=== PATIENT | male | born 2000 | race Native Hawaiian/Other Pacific Islander ===

== ENCOUNTER 2024-06-01 03:27 | Observation (INO) ==
[2024-06-01] MEDS ORDERED: Ondansetron ODT 4 mg TAB 4 MG TAB ONE ×2 (03:33→03:39)
[2024-06-01] MEDS: Ondansetron ODT 4 mg TAB 4 MG TAB SL ONE (03:41)
[2024-06-01] MEDS: Prochlorperazine 5 mg/ml 2 ml VIAL (10 mg) IV ONE (06:36)
[2024-06-01] MEDS: Lactated Ringers 1000 ml BAG 1,000 ML IV ONE (06:40)
[2024-06-01 06:43] LABS: ABS Lymphocytes 1.6 10^3/uL (1.0-4.8); ABS Monocytes 0.4 10^3/uL (0.0-1.1); ABS Neutrophils 8.9 10^3/uL (1.5-7.6); Eosinophil % 0.1 %; Hematocrit 42.8 % (38-53); Hemoglobin 15.3 g/dL (13.2-16.3); Lymphocyte % 14.4 %; Mean Corpuscular Hemoglobin 33.5 pg (27-33); Mean Corpuscular Hgb Conc 35.8 g/dL (31-36); Mean Corpuscular Volume 93.5 fL (80-97); Mean Platelet Volume 8.4 fL (7.5-11.2); Platelet Count 202 10^3/uL (150-450); Red Blood Count 4.58 10^6/uL (4.06-5.63); Red Cell Distribution Width 12.6 % (12-17); White Blood Count 10.9 10^3/uL (3.6-10.2)
[2024-06-01 07:32] LABS: ALT 25 U/L (7-52); AST 16 U/L (13-39); Albumin 4.9 g/dL (3.5-5.7); Albumin/Globulin Ratio 2.2 (1-3); Alkaline Phosphatase 69 U/L (35-149); Anion Gap 10 mmol/L (2-16); Blood Urea Nitrogen 12 mg/dL (6-24); CO2 Carbon Dioxide 29 mmol/L (22-32); Calcium 10.1 mg/dL (8.6-10.3); Chloride 104 mmol/L (101-111); Creatinine, Serum 0.82 mg/dL (0.67-1.17); Globulin 2.2 g/dL (2-4); Glucose 106 mg/dL (70-100); Sodium 143 mmol/L (135-145); Total Bilirubin 0.5 mg/dL (0.2-1.0); Total Protein 7.1 g/dL (6.4-8.9); eGFR CKD-EPI 128.2 (>60)
[2024-06-01] MEDS: Gadoteridol (CONTRAST) 279.3 MG/ML 10 ML IV ONE (11:30)
[2024-06-01] MEDS: methylPREDNISolone SOD SUCC 1000 MG ML VIAL IVPB ONE (13:05)
[2024-06-01] MEDS: methylPREDNISolone SOD SUCC 1,000 MG in NS 0.9% 250 ml 250 ML IVPB ONE (13:35)
[2024-06-01] MEDS: Ondansetron 4 mg VIAL 2 MG/ML 2 ml VIAL IV PRN (13:41)
[2024-06-01] MEDS: Lactated Ringers 1000 ml BAG 1,000 ML IV SCH (14:41)
[2024-06-01] MEDS: Scopolamine 1 mg/72hr PATCH TRANSDERM SCH (15:27)
[2024-06-01 16:56] LABS: C Reactive Protein 1.65 mg/L (<8.01)
[2024-06-01 17:22] LABS: Vitamin D Total 25(OH) < 7.0 ng/mL (20-50)
[2024-06-01 17:45] LABS: Erythrocyte Sed Rate 95 mm/Hr (0-14)
[2024-06-02 06:23] LABS: ABS Lymphocytes 1.3 10^3/uL (1.0-4.8); ABS Monocytes 0.2 10^3/uL (0.0-1.1); ABS Neutrophils 7.5 10^3/uL (1.5-7.6); Hematocrit 39.2 % (38-53); Hemoglobin 13.8 g/dL (13.2-16.3); Lymphocyte % 14.3 %; Mean Corpuscular Hemoglobin 32.8 pg (27-33); Mean Corpuscular Hgb Conc 35.1 g/dL (31-36); Mean Corpuscular Volume 93.3 fL (80-97); Mean Platelet Volume 8.6 fL (7.5-11.2); Platelet Count 195 10^3/uL (150-450); Red Cell Distribution Width 12.7 % (12-17); White Blood Count 9.1 10^3/uL (3.6-10.2)
[2024-06-02 06:51] LABS: Calcium 9.8 mg/dL (8.6-10.3); Creatinine, Serum 0.77 mg/dL (0.67-1.17); Magnesium 1.9 mg/dL (1.9-2.7); Potassium 4.8 mmol/L (3.5-5.0); eGFR CKD-EPI 130.6 (>60)
[2024-06-02 09:24] LABS: Body Fluid Source Cerebral Spinal
[2024-06-02 09:45] LABS: Body Fluid Appearance Clear; Body Fluid Color Colorless; CSF Tube # 4
[2024-06-02 09:48] LABS: CSF Body Fluid WBC 7 /mcL (0-5)
[2024-06-02 09:53] LABS: CSF Glucose 96 mg/dL (40-70)
[2024-06-02] MEDS: Lactated Ringers 1000 ml BAG 500 ML IV SCH (09:54)
[2024-06-02 10:28] LABS: Body Fluid Mono 4 %; Body Fluid Total Cells Counted 56
[2024-06-02] MEDS: methylPREDNISolone SOD SUCC 1,000 MG in NS 0.9% 250 ml 250 ML IVPB ONE (15:12)
[2024-06-03 07:01] LABS: ABS Lymphocytes 1.2 10^3/uL (1.0-4.8); ABS Monocytes 0.4 10^3/uL (0.0-1.1); Hematocrit 37.8 % (38-53); Hemoglobin 13.4 g/dL (13.2-16.3); Lymphocyte % 10.4 %; Mean Corpuscular Hemoglobin 32.9 pg (27-33); Mean Corpuscular Hgb Conc 35.4 g/dL (31-36); Mean Corpuscular Volume 92.9 fL (80-97); Mean Platelet Volume 8.8 fL (7.5-11.2); Platelet Count 191 10^3/uL (150-450); Red Blood Count 4.07 10^6/uL (4.06-5.63); Red Cell Distribution Width 12.8 % (12-17); White Blood Count 11.6 10^3/uL (3.6-10.2)
[2024-06-03 07:41] LABS: Calcium 9.6 mg/dL (8.6-10.3); Creatinine, Serum 0.73 mg/dL (0.67-1.17); Magnesium 1.9 mg/dL (1.9-2.7); Potassium 3.9 mmol/L (3.5-5.0); eGFR CKD-EPI 132.7 (>60)
[2024-06-03 09:45] VITALS: BP 118/67
[2024-06-03] MEDS: methylPREDNISolone SOD SUCC 1,000 MG in NS 0.9% 250 ml 250 ML IVPB ONE (11:51)
[2024-06-03] MEDS ORDERED: methylPREDNISolone SOD SUCC 1,000 MG in NS 0.9% 250 ml 250 ML IVPB ONE (15:00)
[2024-06-05 12:20] LABS: MOG FACS, S Negative (Negative)
[2024-06-05 13:31] LABS: CSF Oligoclonal Bands 3 bands; Oligoclonal Proteins Interpret 3 bands (<2); Serum Oligoclonal Bands 0 bands
[2024-06-05 21:17] LABS: NMO/AQP4 IgG Negative (Negative)
[2024-06-06 00:54] LABS: CSF Angiotension Conv Enz 0.9 U/L (0.0-2.5)
== END 2024-06-03 13:35 | disposition home or self-care (01) ==
LOC: EDHOLD 03:27 → ED 03:27 → MED 15:55
PROVIDERS: ADMIT Internal Medicine; ATTEND Internal Medicine